=== PATIENT | female | born 1950 | race Two or more races ===

== ENCOUNTER 2024-12-20 13:21 | Emergency (ER) | payer OTHER ==
[~2024-12-20] VITALS: Ht 162.6 cm; Wt 77.1 kg
[2024-12-20] MEDS ORDERED: METOPROLOL SUCC25 MG PO (13:34)
[2024-12-20] MEDS ORDERED: PEPCID AC20 MG PO (13:34)
[2024-12-20] MEDS ORDERED: IRBESARTAN150 MG PO (13:35)
[2024-12-20] MEDS ORDERED: ROSUVASTATIN CA40 MG PO (13:35)
[2024-12-20] MEDS ORDERED: ADULT LOW DOSE81 M1 PO (13:35)
[2024-12-20] MEDS ORDERED: ALPRAZOLAM XR0.5 MG PO (13:36)
[2024-12-20] MEDS ORDERED: MORPHINE SULFATE 4 MG/ML VIAL IV STA (14:45)
[2024-12-20] MEDS ORDERED: METRONIDAZOLE/SODIUM CHLORIDE 500 MG/100 ML PIGGYBACK IV STA (14:46)
[2024-12-20] MEDS ORDERED: FAMOtidine 10 MG/ML (4ML VIAL) IV STA (14:46)
[2024-12-20] MEDS ORDERED: CIPROFLOXACIN IN 5 % DEXTROSE 400 MG/200 ML PIGGYBAG IV STA (14:46)
[2024-12-20] MEDS ORDERED: CIPROFLOXACIN IN 5 % DEXTROSE 400 MG/200 ML PIGGYBAG IV ONE (15:18)
[2024-12-20] MEDS ORDERED: METRONIDAZOLE/SODIUM CHLORIDE 500 MG/100 ML PIGGYBACK IV ONE (15:18)
[2024-12-20 15:54] LABS: HEMATOCRIT 46.6 % (36.0-45.00); HEMOGLOBIN 15.8 g/dL (12.0-15.00); MEAN CELL VOLUME 86.3 fL (80.00-100.00); MEAN CORPUSCULAR HEMOGLOBIN 29.3 pg (27.00-32.0); MEAN CORPUSCULAR HGB CONC 33.9 g/dl (32.0-36.0); PLATELET COUNT 196 K/uL (150-450); RED CELL DISTRIBUTION WIDTH 15.1 % (11.5-14.5)
[2024-12-20 16:20] LABS: CALCIUM 9.4 mg/dL (8.5-10.1); CREATININE SERUM 0.74 mg/dL (0.55-1.02); GFR 76.3; POTASSIUM 4.51 mEq/L (3.5-5.1)
[2024-12-20 16:57] LABS: URINE APPEARANCE Clear; URINE BILIRRUBIN Small (NEGATIVE); URINE BLOOD Negative; URINE COLOR Red; URINE GLUCOSE Negative (NEGATIVE); URINE KETONE Error (NEGATIVE); URINE LEUKOCYTE Moderate; URINE NITRATE Positive; URINE PROTEIN Trace (NEGATIVE)
[2024-12-20 17:02] LABS: URINE EPITHELIAL CELLS 12.9 uL (0.0-38.8); URINE RBC 10.7 uL (0.0-20.8)
[2024-12-20 17:31] LABS: URINE BACTERIA 1.2 uL (0.0-1933); URINE CAST 0.14 uL (0.0-1.40); URINE WBC 1.2 uL (0.0-23.2)
== END 2024-12-20 18:21 | disposition home or self-care (01) ==
LOC: ER 13:22
PROVIDERS: General Practice
DX: R10.2 Pelvic and perineal pain (principal); I10 Essential (primary) hypertension; Z88.5 Allergy status to narcotic agent
CPT/HCPCS: 36415; 74176; 96365; 99284; J2270; J3490 ×3

== ENCOUNTER 2024-12-26 18:16 | Emergency (ER) | payer OTHER ==
[~2024-12-26] VITALS: Ht 162.6 cm; Wt 81.6 kg
[~2024-12-26 18:16] MED LIST: ADULT LOW DOSE81 M1 PO; ALPRAZOLAM XR0.5 MG PO; IRBESARTAN150 MG PO; METOPROLOL SUCC25 MG PO; PEPCID AC20 MG PO; ROSUVASTATIN CA40 MG PO
[2024-12-26] MEDS ORDERED: LEVALBUTEROL HCL 1.25 MG/3 ML SOLUTION IH ONE (19:00)
[2024-12-26 19:47] LABS: HEMATOCRIT 47.7 % (36.0-45.00); MEAN CORPUSCULAR HEMOGLOBIN 28.9 pg (27.00-32.0); MEAN CORPUSCULAR HGB CONC 33.6 g/dl (32.0-36.0); PLATELET COUNT 230 K/uL (150-450); RED BLOOD COUNT 5.55 M/uL (4.00-6.00)
[2024-12-26 20:12] LABS: INR 1.03; PARTIAL THROMBOPLASTIN TIME 28.8 SECONDS (22.0-34.0); PROTHROMBIN TIME 11.2 SECONDS (9.0-11.5)
[2024-12-26 20:18] LABS: BILIRUBIN TOTAL 0.52 mg/dL (0.3-1.2); CALCIUM 9.4 mg/dL (8.5-10.1); CREATININE SERUM 0.82 mg/dL (0.55-1.02); GFR 67.78; GLOBULINA 3.7 G/DL (2.4-3.5); POTASSIUM 3.71 mEq/L (3.5-5.1); TOTAL PROTEIN 7.7 gm/dL (6.4-8.2)
[2024-12-26 21:30] LABS: ABG PH 7.399 (7.35-7.45); ABG PO2 103.5 mmHg (80-100); ABG pCO2 39.3 mmHg (35-45); BASE EXCESS -0.9 mmol/l; BICARBONATE 23.7 mmol/l (23-25); SaO2 97.9 %; Tco2 24.9 mmol/l
[2024-12-26 21:34] LABS: allen test SATISFACTORY; mode NASAL CANNULA; o2 28 %; puncture site RADIAL RIGHT
[2024-12-26] MEDS ORDERED: PEPCID AC20 MG PO (23:42)
[2024-12-26] MEDS ORDERED: LEVALBUTER0.63 MG/3 IH (23:42)
== END 2024-12-27 00:21 | disposition home or self-care (01) ==
LOC: ER 18:17
PROVIDERS: General Practice
DX: R07.9 Chest pain, unspecified (principal); R06.02 Shortness of breath; R53.1 Weakness; Z88.8 Allergy status to other drugs, medicaments and biological substances; I10 Essential (primary) hypertension; Z86.73 Personal history of transient ischemic attack (TIA), and cerebral infarction without residual deficits; K57.32 Diverticulitis of large intestine without perforation or abscess without bleeding; G62.9 Polyneuropathy, unspecified

== ENCOUNTER 2025-03-31 18:27 | Emergency (ER) | payer OTHER ==
[~2025-03-31] VITALS: Ht 162.6 cm; Wt 77.1 kg
[~2025-03-31 18:27] MED LIST changes: +LEVALBUTER0.63 MG/3 IH
[2025-03-31] MEDS ORDERED: PANTOPRAZOLE SO20 MG PO (18:52)
[2025-03-31] MEDS ORDERED: 0.9 % SODIUM CHLORIDE 1,000 ML IV STA (20:42)
[2025-03-31] MEDS ORDERED: METOCLOPRAMIDE HCL 5 MG/ML VIAL IM STA (20:43)
[2025-03-31] MEDS ORDERED: FAMOtidine 10 MG/ML (4ML VIAL) IV PUSH STA (20:45)
[2025-03-31] MEDS ORDERED: ONDANSETRON HCL 2 MG/ML VIAL IV STA (20:45)
[2025-03-31] MEDS ORDERED: PANTOPRAZOLE SODIUM 40 MG/VIAL VIAL IV PUSH STA (20:46)
[2025-03-31] MEDS ORDERED: ONDANSETRON HCL 2 MG/ML VIAL ONE (22:03)
[2025-03-31] MEDS ORDERED: METOCLOPRAMIDE HCL 5 MG/ML VIAL ONE (22:03)
[2025-03-31] MEDS ORDERED: FAMOTIDINE/PF 20 MG/2 ML VIAL ONE (22:03)
[2025-03-31 23:18] LABS: BASO % 0.6 % (0.1-1.2); EOS # 0.13 (0.04-0.54); EOS % 1.9 % (0.7-7.0); LYMPH # 2.37 (1.18-3.74); LYMPH % 34.5 % (19.3-53.1); MEAN PLATELET VOLUME 10.20 fl (9.4-12.4); MONO # 0.57 (0.24-0.82); MONO % 8.3 % (4.7-12.5); NEUT # 3.75 (1.56-6.13); NEUT % 54.6 % (34.0-71.1); RED CELL DISTRIBUTION WIDTH 14.0 % (11.6-14.4)
[2025-03-31 23:35] LABS: INR 1.02
[2025-03-31 23:45] LABS: ALT/SGPT 41.0 U/L (12-78); AST/SGOT 24.0 U/L (15-37); BILIRUBIN TOTAL 0.53 mg/dL (0.3-1.2); BUN CREA RATIO 18.0 (7.0-25.0); CREATININE SERUM 0.72 mg/dL (0.55-1.02); GFR 78.75; GLOBULINA 3.2 G/DL (2.4-3.5); GLUCOSE FASTING 105.0 mg/dL (65-100); OSMOLALITY SERUM 289.0 MOSM/KG (275-295)
[2025-04-01] MEDS ORDERED: LEVSIN/SL0.125 MG SL (03:38)
== END 2025-04-01 03:49 ==
LOC: ER 18:30
DX: K29.70 Gastritis, unspecified, without bleeding (principal); Z88.8 Allergy status to other drugs, medicaments and biological substances; K57.30 Diverticulosis of large intestine without perforation or abscess without bleeding; K43.9 Ventral hernia without obstruction or gangrene